=== PATIENT | male | born 1995 | race Caucasian/White ===

== ENCOUNTER 2022-09-21 19:29 | Emergency (ER) | payer MEDICAID, SELFPAY ==
[2022-09-21 19:36] VITALS: BP 131/79; PULSE 70; RESP 18; TEMP 36.8; O2SAT 99; BMI 28.5
--- NOTE | 2022-09-21 20:46 | ED.GENADULT ---
HPI - General Adult General Date Seen: 09/21/22 Chief complaint: Insect Bite Stated complaint: Unidentified bug bite Time Seen by Provider: 09/21/22 19:49 Source: patient Mode of arrival: ambulatory Limitations: no limitations History of Present Illness HPI narrative: Patient is a very nice gentleman who presents here with a bug bite to his left upper abdominal region, this occurred 3 days ago is been increasing in redness and swelling his mom thinks it is a black neck bite, he does not remember a tick, it was a bite of some sort from his 2nd maybe of sting. Before had reaction to this he is on no chronic medications no known allergies, otherwise feels well with absence of fevers chills or sweats. Related Data Home Medications Medication Instructions Recorded Confirmed No Known Home Medications 09/21/22 09/21/22 Allergies Allergy/AdvReac Type Severity Reaction Status Date / Time Pertussis Vaccines Allergy Unknown When He Verified 09/21/22 19:39 Was a Baby Review of Systems Status of ROS: Reports: 6 or more systems reviewed and unremarkable except as noted in History and below Exam Narrative: Exam Narrative: Patient is examined in room 4 he is in no apparent distress left upper area of his abdomen shows a bit of redness, consistent with a bite of sorts. It is approximately little bit greater than loony sized central area of small little necrotic area that looks more like spider bite. No abdominal pain no organomegaly bowel sounds are no Const: Vital Signs, click to edit/add: Vital Signs - 24 hr 09/21/22 19:36 Temperature 98.2 F Pulse Rate [Right Pulse Oximeter] 70 Respiratory Rate 18 Blood Pressure [Ri ght Upper Arm] 131/79 Pulse Oximetry 99 Oxygen Delivery Me thod Room Air Documenting provider has reviewed patient's vital signs: yes Course Vital Signs Vital signs: Initial Vital Signs Temperature 98.2 F 09/21/22 19:36 Temperature Source Temporal Artery Scan 09/21/22 19:36 Pulse Rate 70 09/21/22 19:36 Respiratory Rate 18 09/21/22 19:36 Blood Pressure 131/79 09/21/22 19:36 Blood Pressure Mean 96 09/21/22 19:36 Blood Pressure Position Sitting 09/21/22 19:36 Pulse Oximetry 99 09/21/22 19:36 Oxygen Delivery Method Room Air 09/21/22 19:36 Vital Signs Temperature 98.2 F 09/21/22 19:36 Pulse Rate 70 09/21/22 19:36 Respiratory Rate 18 09/21/22 19:36 Blood Pressure 131/79 09/21/22 19:36 Pulse Oximetry 99 09/21/22 19:36 Oxygen Delivery Method Room Air 09/21/22 19:36 Temperature 98.2 F 09/21/22 19:36 Pulse Rate 70 09/21/22 19:36 Respiratory Rate 18 09/21/22 19:36 Blood Pressure 131/79 09/21/22 19:36 Pulse Oximetry 99 09/21/22 19:36 Oxygen Delivery Method Room Air 09/21/22 19:36 Medical Decision Making MDM Narrative Medical decision making narrative: I considered multiple diagnosis include tick spider bite, cellulitis, secondary infection, impetigo, early shingles. I do think this is likely secondarily infected will give him some Keflex I do not think it is a tick bite, he has no history of removing this. I have asked him to take the medication as directed return if there is any signs worsening he may use some of bacitracin on the area also in some Benadryl to the area. Discharge Plan Discharge Clinical Impression: Insect bite Patient Disposition: Home, Self-Care Condition: Stable Instructions: Cold Compress or Soak (ED) Additional Instructions: home,rest and antibiotics as directed, use of bacitracin, suggest return if fever or other issues Prescriptions: No Action No Known Home Medications Stand Alone Forms: [facility] Info Instructions
[2022-09-21 20:53] VITALS: BP 131/79; PULSE 70; RESP 18; TEMP 36.8; O2SAT 99
[2022-09-21 20:54] VITALS: BP 131/79; PULSE 70; RESP 18; TEMP 36.8
== END 2022-09-21 20:54 | disposition home or self-care (01) ==
LOC: ED 20:50
PROVIDERS: Emergency Provider Family Medicine
DX: S30.861A Insect bite (nonvenomous) of abdominal wall, initial encounter (principal)
CPT/HCPCS: 99282; 99283

== ENCOUNTER 2022-10-24 16:10 | Outpatient (CLI) | payer MEDICAID, SELFPAY | END 2022-10-24 16:11 | disposition home or self-care (01) | LOC: NFLDREF 10-26 18:54 | PROVIDERS: Visit Provider Family Medicine | DX: Z13.1 Encounter for screening for diabetes mellitus (principal); Z13.6 Encounter for screening for cardiovascular disorders | CPT/HCPCS: 80061; 82947 ==

== ENCOUNTER 2022-11-02 15:55 | Emergency (ER) | payer MEDICAID, SELFPAY ==
[2022-11-02 15:59] VITALS: BP 118/83; PULSE 82; RESP 16; TEMP 36.2; O2SAT 98; BMI 30.8
[2022-11-02] MEDS: ONDANSETRON ODT 4 MG TAB PO (16:25)
--- NOTE | 2022-11-02 16:52 | ED_ITS ---
HPI - General Adult General Chief complaint: Nausea/Vomiting Stated complaint: vomited a lot of blood Time Seen by Provider: 11/02/22 15:58 History of Present Illness HPI narrative: This 27-year-old male comes in reporting nausea and vomiting episodes that began today. He states that he has had 3 episodes of vomiting. He comes in because 1 of them included blood in the vomit. He estimates that he vomited perhaps a 3rd of a cup of blood. He reports just mild abdominal pain and has not had any fevers. There is no sign of ongoing bleeding. He does not take any blood thinners. He states that he does not drink alcohol except on very rare occasions. He arrives with normal vital signs. Related Data Previous Rx's Medication Instructions Recorded sertraline 50 mg tablet 50 mg PO QDAY #90 tabs 10/28/22 ondansetron HCl 4 mg tablet 4 mg PO Q6H #10 tabs 11/02/22 Allergies Allergy/AdvReac Type Severity Reaction Status Date / Time Pertussis Vaccines Allergy Unknown When He Verified 11/02/22 16:04 Was a Baby influenza vaccine AdvReac Uncoded 11/02/22 16:04 Review of Systems Status of ROS: Reports: 10 or more systems reviewed and unremarkable except as noted in History and below Narrative: Constitutional: No fevers, no weight gain or loss. Eyes: No discharge. No vision changes. HENT: No congestion, no sore throat, no ear pain. Cardiovascular: No chest pain, no palpitations. Respiratory: No shortness of breath, no wheezes, no cough. Gastrointestinal: Mild abdominal pain. Nausea with some vomiting episodes. Genitourinary: No dysuria, no hematuria. Musculoskeletal: Normal range of motion. Skin: No rashes, no pruritis. Neurological: No dizziness, weakness, sensory change, speech change. Endo/Heme/Allergies: No bruising or bleeding. No polydipsia. Pysch: no suicidality, no anxiety, no insomnia. All other systems reviewed and are negative. [facility] Medical History (Updated 11/02/22 @ 17:00 by Dean Finnegan MD) No significant past medical history Surgical History (Updated 09/21/22 @ 20:52 by Imtiaz Etienne RN) No significant past surgical history Social History (Updated 10/28/22 @ 16:29 by Kelly Brenner ~ [facility]) What is your current living situation?: I presently have a place to live Problems where you live: no known problems In the past 12 months, utilities in danger of being shut off: no In the past 12 mos, have been you worried that your food would run out before you had money to buy more?: never true In the past 12 mos, the food you bought just didn't last and you didn't have money to buy more?: never true Smoking Status: Never smoker Do you use any of these nicotine containing products: None Second hand tobacco smoke exposure: No How often do you have a drink containing alcohol: monthly or less How many standard drinks containing alcohol do you have on a typical day: 1 or 2 How often do you have six or more drinks on one occasion: Never AUDIT-C Alcohol total score: 1 Non-prescribed substance use: marijuana (any form) Non-prescribed substance use details: THC gummies 1-2x per week How often does anyone, including family, friends and others, physically hurt you : never How often does anyone, including family, friends and others, insult or talk down to you: never How often does anyone, including family, friends and others, threaten you with harm: never How often does anyone, including family, friends and others, scream or curse at you: rarely Little interest or pleasure in doing things: several days Feeling down, depressed, or hopeless: more than half the days service: No Exam Narrative: Exam Narrative: Constitutional: Well-developed, well-nourished, no acute distress. HEENT: Normocephalic, atraumatic. Neck: Normal range of motion. Nontender. Supple. Heart: Regular. No murmurs. Normal rate. Intact distal pulses. Lungs: Clear to auscultation. No chest discomfort. No wheezes, rhonchi, or rales. Abdomen: Normal bowel sounds. Nontender. No rebound tenderness. Genitalia: Deferred. Back: No midline tenderness. Normal range of motion. Extremities: Normal range of motion. No injury. Skin: Intact. No rash. Warm. No erythema or pallor. Neurologic: No altered sensation. No weakness. Alert and oriented. Psychiatric: No suicidality. No anxiety or depression. No insomnia. Nursing notes and vitals signs are reviewed. Const: Vital Signs, click to edit/add: Vital Signs - 24 hr 11/02/22 15:59 Temperature 97.2 F L Pulse Rate [Pulse Oximeter] 82 Respiratory Rate 16 Blood Pressure [Ri ght Upper Arm] 118/83 Pulse Oximetry 98 Oxygen Delivery Me thod Room Air Course Vital Signs Vital signs: Initial Vital Signs Temperature 97.2 F L 11/02/22 15:59 Temperature Source Temporal Artery Scan 11/02/22 15:59 Pulse Rate 82 11/02/22 15:59 Pulse Rhythm Regular 11/02/22 15:59 Pulse Strength 3+ Normal 11/02/22 15:59 Respiratory Rate 16 11/02/22 15:59 Blood Pressure 118/83 11/02/22 15:59 Blood Pressure Mean 94 11/02/22 15:59 Blood Pressure Position Sitting 11/02/22 15:59 Pulse Oximetry 98 11/02/22 15:59 Oxygen Delivery Method Room Air 11/02/22 15:59 Vital Signs Temperature 97.2 F L 11/02/22 15:59 Pulse Rate 82 11/02/22 15:59 Respiratory Rate 16 11/02/22 15:59 Blood Pressure 118/83 11/02/22 15:59 Pulse Oximetry 98 11/02/22 15:59 Oxygen Delivery Method Room Air 11/02/22 15:59 Temperature 97.2 F L 11/02/22 15:59 Pulse Rate 82 11/02/22 15:59 Respiratory Rate 16 11/02/22 15:59 Blood Pressure 118/83 11/02/22 15:59 Pulse Oximetry 98 11/02/22 15:59 Oxygen Delivery Method Room Air 11/02/22 15:59 Medical Decision Making MDM Narrative Medical decision making narrative: This patient has nausea with some vomiting episodes. One of them included bright red blood but this has not persisted. He arrives with normal vital signs and in his exam is also normal. I stated that we typically check his hemoglobin level and other labs and give IV fluids and medications. I also stated that we could try an oral dose of a nausea medicine and see if he can take liquids. The patient states that he did not want to have an IV and this strongly recommended. He did receive an oral dose of Zofran 4 mg and states that he is feeling better. He was able to take liquids without incident. Most likely the hematemesis was from esophageal varices. He is not on any blood thinners and has normal vital signs. There is no sign of any ongoing bleeding. I did disc uss the role of endoscopy to further workup such symptoms and stated that he should return if hematemesis occurs again. Discharge Plan Discharge Clinical Impression: Vomiting Patient Disposition: Home, Self-Care Condition: Improved Additional Instructions: Take medication for nausea as needed and indicated. Follow up with MD or return if symptoms are recurrent or worsening. Prescriptions: New ondansetron HCl 4 mg tablet 4 mg PO Q6H Qty: 10 0RF No Action sertraline 50 mg tablet 50 mg PO QDAY Qty: 90 0RF Follow Up/Referrals: Uriel Jaeger MD [Primary Care Provider] - Stand Alone Forms: [employer] Info Instructions
== END 2022-11-02 17:35 | disposition home or self-care (01) ==
PROVIDERS: Emergency Provider Emergency Medicine Emergency Medical Services; PCP Family Medicine
DX: R11.10 Vomiting, unspecified (principal)
CPT/HCPCS: 99283; 99284; A9270